=== PATIENT | female | born 1980 | race Caucasian/White ===

== ENCOUNTER 2017-01-15 08:40 | Emergency (ER) | payer MEDICAID ==
[2017-01-15] MEDS ORDERED: Fluorescein Sodium 1 mg Ophth Strip ONE (09:20)
--- NOTE | 2017-01-15 09:36 | ED Physician Chart ---
Chief Complaint/HPI - Patient Information Date Seen:: 01/15/17 Time Seen:: 09:15 Chief Complaint:: right knee pain History of Present Illness:: 3 weeks ago the patient fell onto her right knee while playing softball. Her right knee was hyperflexed with injury. When she struck the ground she heard a pop in the right knee and since then has had pain with ambulation. Patient states something flew into her left eye yesterday and she complains of left eye pain. Allergies:: Allergies Allergy/AdvReac Type Severity Reaction Status Date / Time ceftriaxone [From Rocephin] Allergy Verified 01/15/17 09:23 Vitals:: Vital Signs - 8 hr 01/15/17 09:16 Temp 98.1 F HR 95 RR 16 BP 129/85 O2 Sat % 99 Historian:: Patient Review:: Nurse's Note Reviewed Review of Systems - Review of Systems General/Constitutional: No fever, No chills Skin: No skin lesions Head: No headache Eyes: Pain ENT: No earache, No nasal drainage Neck: No neck pain, No swelling Cardio Vascular: No chest pain, No palpitations Pulmonary: No SOB GI: No nausea, No vomiting G/U: No dysuria, No hematuria, No nacturia Musculoskeletal: Bone or joint pain Psychiatric: No prior psych history, No depression Allergic/Immuno: No urticaria, No angioedema Neurological: No syncope Past Medical History - Past Medical History Past Medical History: HTN, DM Family History: None Social History: Smoker, No Alcohol, Other (patient smokes 4-5 cigarettes a day) Surgical History: Appendectomy, Psychiatricy History: None Medication: Reviewed Family Medical History - Family Member Father Living Status: Hx Family Cancer: Yes Physical Exam - Physical Examination General/Constitutional: Well-developed, well-nourished, Alert Head: Atraumatic Eyes: PERRL, EOMI Other Eyes comments:: There is an area of conjunctival redness of the left eye; left upper eyelid inverted and left lower eyelid retracted and no foreign bodies seen; fluorescein staining of the left eye was negative for corneal abrasion. Skin: Nl inspection ENMT: External ears, nose nl Neck: No nuchal rigidity Respiratory: Nl effort/Exclusion, Clear to Auscultation Cardio Vascular: RRR : No CVA tenderness Other Extremities comments:: Right knee: There is 90 of flexion; collateral and cruciate ligaments are stable; there is point tenderness of the medial joint line Labs/Radiology/EKG Results - Radiology Results Results: X-ray right knee normal Assessment - Assessment General Assessment: Since patient has tenderness of the medial joint line she may have torn the medial meniscus of the right knee. I applied a 6 inch Aki wrap ED Septic Shock - . Is Septic Shock (SBP<90, OR Lactate>4 mmol\L) present?: No - <6hrs of presentation: Vital Signs: Vital Signs - 8 hr 01/15/ 09:16 Temp 98.1 F HR 95 RR 16 BP 129/85 O2 Sat % 99 Reassessment (Disposition) - Reassessment Reassessment Condition:: Unchanged - Diagnosis Diagnosis:: Right knee sprain; traumatic irritation of left eye - Aftercare/Follow up Instructions Aftercare/Follow-Up Instructions:: Refer to Discharge Instructions - Patient Disposition Discharge/Transfer:: Home Condition at Disposition:: Stable, Unchanged
--- NOTE | 2017-01-15 11:07 | Diagnostic Imaging Report ---
Right knee (2 views) HISTORY: Pain, trauma No acute abnormalities. No fractures. Joint spaces appear normal. IMPRESSION: No acute bony abnormalities.
== END 2017-01-15 10:15 | disposition home or self-care (01) ==
LOC: ER 08:40
DX: S83.91XA Sprain of unspecified site of right knee, initial encounter (principal); S05.92XA Unspecified injury of left eye and orbit, initial encounter; I10 Essential (primary) hypertension; E11.9 Type 2 diabetes mellitus without complications; F17.210 Nicotine dependence, cigarettes, uncomplicated; Z88.1 Allergy status to other antibiotic agents; X58.XXXA Exposure to other specified factors, initial encounter; Y93.64 Activity, baseball; Y92.89 Other specified places as the place of occurrence of the external cause; Y99.8 Other external cause status
CPT/HCPCS: 73560-TC-RT; 81025-TC; Z7502